=== PATIENT | male | born 1990 ===

== ENCOUNTER 2018-01-16 17:15 | Emergency (ER) | payer OTHER ==
[2018-01-16 17:25] VITALS: BP 134/76; PULSE 74; RESP 18; TEMP 98.7; O2SAT 100
[2018-01-16] MEDS ORDERED: Tdap Vaccine 0.5 ml Vial (10-64 yrs) IM ONE ×2 (17:34→18:03)
--- NOTE | 2018-01-16 17:40 | ED PDOC ---
Upper Extremity Pain/Injury Time Seen by Provider: 01/16/18 17:32 Chief Complaint (Nursing): Finger,Hand,&Wrist History Per: Patient History/Exam Limitations: no limitations Onset/Duration Of Symptoms: Hrs (X 6) Current Symptoms Are (Timing): Still Present Additional Complaint(s): 27-year-old male presents to ED with laceration to right fourth digit at work around 11:00. States machine landed on it. Pt is right hand dominant. Unsure of last tetanus shot. PMD: Provider TBD Past Medical History Reviewed: Historical Data, Nursing Documentation, Vital Signs Vital Signs: Last Vital Signs Temp 98.7 F 01/16/18 17:22 Pulse 74 01/16/18 17:22 Resp 18 01/16/18 17:22 BP 134/76 01/16/18 17:22 Pulse Ox 100 01/16/18 17:22 - Medical History PMH: No Chronic Diseases - Surgical History Surgical History: No Surg Hx - Family History Family History: States: Unknown Family Hx - Allergies Allergies/Adverse Reactions: Allergies Allergy/AdvReac Type Severity Reaction Status Date / Time No Known Allergies Allergy Verified 01/16/18 17:22 Review of Systems ROS Statement: Except As Marked, All Systems Reviewed And Found Negative Musculoskeletal: Positive for: Other (laceration to right fourth digit) Physical Exam - Reviewed Nursing Documentation Reviewed: Yes Vital Signs Reviewed: Yes - Physical Exam Extremity: Positive for: Other ((+) 2 cm laceration to distal tip of right fourth digit on the volar surface, (+) Able to flex/extend at DIP and PIP) - ECG O2 Sat by Pulse Oximetry: 100 (ra) Pulse Ox Interpretation: Normal - Radiology X-Ray: Interpreted by Me, Viewed By Me X-Ray Interpretation: No Acute Disease Medical Decision Making Medical Decision Making: Time: 17:32 Plan: - Right Hand X-Ray - Keflex 500 mg PO - Adacel (10-64) yrs 0.5 ml IM (-) Right Hand X-Ray Splint applied Upon provider evaluation patient is medically stable, and requires no further treatment in the ED at this time. Patient will be discharged. Counseling was provided and all questions were answered regarding diagnosis and need to come back to ER in 2 days for wound check. There is agreement to discharge plan. Return if symptoms persist or worsen. Scribe Attestation: Documented by Marlon Coleman, acting as a scribe for Berna Edouard PA-C. Provider Scribe Attestation: All medical record entries made by the Scribe were at my direction and personally dictated by me. I have reviewed the chart and agree that the record accurately reflects my personal performance of the history, physical exam, medical decision making, and the department course for this patient. I have also personally directed, reviewed, and agree with the discharge instructions and disposition. Procedures - Laceration/Wound Repair Distal Tip of Right fourth digit on the volar surface Wound Length (cm): 2 Anesthesia: 1% Lidocaine (+ Digital Block) Wound Repaired With: Sutures Suture Size/Type: 5:0, nylon Number of Sutures: 6 (interrupted) Wound Complexity: Simple Disposition - Clinical Impression Clinical Impression: Hand laceration - Patient ED Disposition Is Patient to be Admitted: No - Disposition Disposition: Routine/Home Disposition Time: 19:07 Condition: FAIR Additional Instructions: return in 2 days for wound check return in 7 days to remove sutures. Instructions: Laceration Repair Forms: [facility] ED School/Work Excuse Print Language: TUVALUAN
[2018-01-16] MEDS ORDERED: Lidocaine 1% Inj (20ml) IJ ONE (18:24)
[2018-01-16] MEDS ORDERED: Lidocaine 1% 20 MG/2 ML PF AMP ONE (18:27)
--- NOTE | 2018-01-17 08:09 | RAD ---
PROCEDURE: Right Hand Radiographs. HISTORY: HAND IJURY COMPARISON: None. FINDINGS: BONES: No acute fracture. JOINTS: Unremarkable. SOFT TISSUES: Normal. OTHER FINDINGS: None. IMPRESSION: No demonstrated fracture or dislocation.
== END 2018-01-16 19:13 | disposition home or self-care (01) ==
LOC: H.ER 17:15
DX: S61.214A Laceration without foreign body of right ring finger without damage to nail, initial encounter (principal); W20.8XXA Other cause of strike by thrown, projected or falling object, initial encounter; Z23 Encounter for immunization

== ENCOUNTER 2018-01-18 18:26 | Emergency (ER) | payer OTHER ==
[2018-01-18 18:31] VITALS: BP 131/84; PULSE 88; RESP 18; TEMP 98.6; O2SAT 100
--- NOTE | 2018-01-18 18:54 | ED PDOC ---
HPI: Wound Care - HPI Time Seen by Provider: 01/18/18 18:45 Chief Complaint (Nursing): Wound Check Chief Complaint (Provider): Wound Check History Per: Patient History Of Present Illness: 27 year old male presents to the emergency department for a wound check to sutures he had placed few days ago. Exam Limitations: no limitations Current Symptoms Are (Timing): Still Present Location Of Injury: Right: Hand Severity: None Past Medical History Reviewed: Historical Data, Nursing Documentation, Vital Signs Vital Signs: Last Vital Signs Temp 98.6 F 01/18/18 18:30 Pulse 88 01/18/18 18:30 Resp 18 01/18/18 18:30 BP 131/84 01/18/18 18:30 Pulse Ox 100 01/18/18 18:30 - Medical History PMH: No Chronic Diseases - Surgical History Surgical History: No Surg Hx - Family History Family History: States: Unknown Family Hx - Living Arrangements Living Arrangements: With Family - Social History Current smoker - smoking cessation education provided: No Ex-Smoker (has not smoked in the last 12 months): No Alcohol: None Drugs: Denies - Home Medications Home Medications: Ambulatory Orders Medication Instructions Recorded Cephalexin [Keflex] 500 mg PO TID #15 capsule 01/16/18 - Allergies Allergies/Adverse Reactions: Allergies Allergy/AdvReac Type Severity Reaction Status Date / Time No Known Allergies Allergy Verified 01/16/18 17:22 Review of Systems ROS Statement: Except As Marked, All Systems Reviewed And Found Negative Musculoskeletal: Positive for: Other (wound check to right fourth digit) Physical Exam - Reviewed Nursing Documentation Reviewed: Yes Vital Signs Reviewed: Yes - Physical Exam Appears: Positive for: Non-toxic, No Acute Distress Skin: Positive for: Normal Color, Warm, Dry. Negative for: Rash Cardiovascular/Chest: Positive for: Regular Rate, Rhythm, Chest Non Tender. Negative for: Tachycardia Respiratory: Positive for: Normal Breath Sounds. Negative for: Rales, Rhonchi, Wheezing, Respiratory Distress Extremity: Positive for: Other (Right distal tip of fourth digit left hand sutures intact; no signs of erythema ). Negative for: Tenderness, Deformity, Swelling Neurologic/Psych: Positive for: Alert, Oriented. Negative for: Motor/Sensory Deficits - ECG O2 Sat by Pulse Oximetry: 100 (RA) Pulse Ox Interpretation: Normal Medical Decision Making Medical Decision Makin Initial Impression 27 year old male presenting for wound check Initial Plan: * reevaluation Wound cleansed, no signs of infection. Patient is medically stabled and will be discharged home. Documented by Kayley Batres acting as a scribe for Berna Edouard PA-C. All medical record entries made by the Scribe were at my direction and personally dictated by me. I have reviewed the chart and agree that the record accurately reflects my personal performance of the history, physical exam, medical decision making, and the department course for this patient. I have also personally directed, reviewed, and agree with the discharge instructions and disposition. Disposition - Clinical Impression Clinical Impression: Encounter for wound re-check - Patient ED Disposition Is Patient to be Admitted: No Counseled Patient/Family Regarding: Studies Performed, Diagnosis - Disposition Referrals: [facility] [Outside] Disposition: Routine/Home Disposition Time: 18:45 Condition: FAIR Instructions: Wound Care (DC) Forms: [employer] (Maldivian) Print Language: PORTUGUESE - POA Present On Arrival: None
== END 2018-01-18 18:54 | disposition home or self-care (01) ==
LOC: H.ER 18:26
DX: Z48.01 Encounter for change or removal of surgical wound dressing (principal)

== ENCOUNTER 2018-01-23 15:09 | Emergency (ER) | payer OTHER ==
[2018-01-23 15:24] VITALS: BP 126/80; PULSE 64; RESP 18; TEMP 98.7; O2SAT 99
--- NOTE | 2018-01-23 16:00 | ED PDOC ---
HPI: Wound Care - HPI Time Seen by Provider: 01/23/18 15:40 Chief Complaint (Nursing): Suture/Staple Removal Chief Complaint (Provider): wound check, suture removal History Per: Patient History Of Present Illness: 27 year old male presents to ED for suture removal from right 4th digit. Patient states that the sutures were placed 7 days ago in the ED and confirms that he received a tetanus booster at the time. Denies pain or drainage to the area. PCP: none Past Medical History Reviewed: Historical Data, Nursing Documentation, Vital Signs Vital Signs: Last Vital Signs Temp 98.7 F 01/23/18 15:22 Pulse 64 01/23/18 15:22 Resp 18 01/23/18 15:22 BP 126/80 01/23/18 15:22 Pulse Ox 99 01/23/18 15:22 - Medical History PMH: No Chronic Diseases - Surgical History Surgical History: No Surg Hx - Family History Family History: States: Unknown Family Hx - Living Arrangements Living Arrangements: With Family - Social History Current smoker - smoking cessation education provided: No Alcohol: None Drugs: Denies - Immunization History Hx Tetanus Toxoid Vaccination: Yes - Home Medications Home Medications: Ambulatory Orders Medication Instructions Recorded Cephalexin [Keflex] 500 mg PO TID #15 capsule 01/16/18 - Allergies Allergies/Adverse Reactions: Allergies Allergy/AdvReac Type Severity Reaction Status Date / Time No Known Allergies Allergy Verified 01/16/18 17:22 Review of Systems ROS Statement: Except As Marked, All Systems Reviewed And Found Negative (No medical complaints) Constitutional: Negative for: Fever Skin: Positive for: Other (wound check of laceration to right index finger) Physical Exam - Reviewed Nursing Documentation Reviewed: Yes Vital Signs Reviewed: Yes - Physical Exam Appears: Positive for: Well, Non-toxic, No Acute Distress Skin: Positive for: Normal Color. Negative for: Rash Eye Exam: Positive for: Normal appearance Extremity: Positive for: Normal ROM, Other (Sutured lacertion noted to right fourth digit with no signs of infections. Neurovascularly intact). Negative for : Deformity Neurologic/Psych: Positive for: Alert, Oriented. Negative for: Motor/Sensory Deficits - ECG O2 Sat by Pulse Oximetry: 99 (RA) Pulse Ox Interpretation: Normal Medical Decision Making Medical Decision Makin Initial impression: 27 year old male presenting for suture removal Provider removed one suture from the area. Wound edges not fully approximated. Recommended for patient to return in 3 days for suture removal. Patient is stable for discharge home. Wound care instructions given. Scribe Attestation: Documented by Merline Castaneda, acting as a scribe for Anabel Harp PA-C Provider Scribe Attestation: All medical record entries made by the Scribe were at my direction and personally dictated by me. I have reviewed the chart and agree that the record accurately reflects my personal performance of the history, physical exam, medical decision making, and the department course for this patient. I have also personally directed, reviewed, and agree with the discharge instructions and disposition. Disposition - Clinical Impression Clinical Impression: Encounter for wound re-check - Patient ED Disposition Is Patient to be Admitted: No Counseled Patient/Family Regarding: Need For Followup - Disposition Referrals: [facility] [Outside] Disposition: Routine/Home Disposition Time: 16:00 Condition: STABLE Additional Instructions: RETURN ON FRIDAY FOR SUTURE REMOVAL. Instructions: Laceration Repair With Stitches (DC) Forms: [employer] (English) Print Language: CUBAN
== END 2018-01-23 16:16 | disposition home or self-care (01) ==
LOC: H.ER 15:09
DX: Z48.02 Encounter for removal of sutures (principal)